=== PATIENT | female | born 1985 | race Caucasian/White ===

== ENCOUNTER → 2021-12-03 08:39 | Outpatient (CLI) | payer OTHER, SELFPAY ==
--- NOTE | ~2021-12-03 | US_ITS ---
US right upper quadrant INDICATION: Right upper quadrant pain PROCEDURE: Realtime right upper abdominal ultrasound. COMPARISON: No prior studies for comparison. FINDINGS: The pancreas is normal without focal mass or pancreatic ductal dilation. Liver echotexture is normal without focal mass or intrahepatic biliary dilatation. There is normal directional flow i n the portal vein. The gallbladder is normal without stones, gallbladder wall thickening or pericholecystic fluid. Comm on bile duct measures 4 mm. No sonographic Garces's sign. IMPRESSION: 1: Normal limited abdominal ultrasound. Reviewed, dictated and finalized at location A.
== END ==
PROVIDERS: PCP Internal Medicine; Visit Provider Internal Medicine
DX: R10.11 Right upper quadrant pain (principal)
CPT/HCPCS: 76705

== ENCOUNTER 2024-02-15 10:26 | Outpatient (CLI) | payer OTHER, SELFPAY ==
--- NOTE | ~2024-02-15 | MR_ITS ---
MR breast BI wo/w con 02/15/2024 12:04 CDT INDICATION: Abnormal mammogram TECHNIQUE: MRI of the breasts perform using standard protocol pre-and post IV contrast with the follo wing sequences: Axial T2 STIR, axial T1, axial vibrant T1 with fat suppression precontrast and multip hasic postcontrast. 12 cc MultiHance administered intravenously COMPARISON: No prior studies for comparison. FINDINGS: There are no abnormalities on the precontrast sequences. There is mild background parenchym al enhancement. In the upper inner quadrant of the right breast at 1:00, middle third there is an irr egular shaped mass measuring 12 x 9 x 6 mm which is T1 and T2 hypointense with heterogeneous internal rapid plateau enhancement. No abnormal signal abnormalities of the axillary or internal mammary lymp h nodes. LEFT BREAST: No signal abnormalities on precontrast sequences. There is mild background parenchymal enhancement. No enhancing lesions following contrast administration. No areas of enhancement meeti ng threshold criteria on CAD analysis. No evidence of signal abnormalities in the axillary or inter nal mammary node distributions.] IMPRESSION: 1: Right breast: Abnormal right breast mass in the upper inner quadrant at 1:00, middle third measur ing 12 x 9 x 6 mm with rapid plateau enhancement. 2: Left breast: Negative. No evidence of malignancy. Recommendation: Correlation with diagnostic bilateral mammogram and additional ultrasound recommended . BI-RADS CATEGORY 0 - INCOMPLETE STUDY, NEED ADDITIONAL IMAGING EVALUATION. Reviewed, dictated and finalized at location B. IMPRESSION: 1: Right breast: Abnormal right breast mass in the upper inner quadrant at 1:0 0, middle third measuring 12 x 9 x 6 mm with rapid plateau enhancement. 2: Left breast: Negative. No evidence of malignancy. Recommendation: Correlation with diagnostic bilateral mammogram and additional ultrasound recommended. BI-RADS CATEGORY 0 - INCOMPLETE STUDY, NEED ADDITIONAL IMAGING EVALUATION.
== END 2024-02-15 10:27 | disposition home or self-care (01) ==
LOC: ANHIMG 10:32
PROVIDERS: PCP Internal Medicine; Visit Provider Internal Medicine Hematology & Oncology
DX: R92.8 Other abnormal and inconclusive findings on diagnostic imaging of breast (principal); N63.12 Unspecified lump in the right breast, upper inner quadrant
CPT/HCPCS: 77049; A9577; C8908

== ENCOUNTER 2024-07-04 10:44 | Outpatient (CLI) | payer OTHER, SELFPAY ==
--- NOTE | ~2024-07-04 | MMUS_ITS ---
EXAMINATION: US breast BI limited, MM diagnostic jyoti BI w pippa HISTORY: Abnormal enhancement seen on recent MRI examination in the right breast. TECHNIQUE: Additional 3-D tomosynthesis images of the breasts were performed and synthetic 2-D images were generated. CAD analysis was submitted and interpreted. High resolution bilateral breast ultraso und was performed. COMPARISON: MRI dated 02/15/2024 BREAST PARENCHYMAL COMPOSITION: Dense: The breasts are extremely dense, which lowers the sensitivity of mammography. FINDINGS: MAMMOGRAPHIC FINDINGS: There is architectural distortion in the upper inner quadrant of the right breast, consistent with pr evious biopsy site (benign). Slightly anterior to this location there is an area of palpable concern. ULTRASOUND: Limited right breast ultrasound: At 1:00, 2 cm from the nipple there is an oval hypoechoic 4 mm mass with internal echogenic areas, possibly benign intramammary lymph node. There is parallel orientation , no significant internal vascularity and mixed posterior attenuation. At 9:00, 1 cm from the nipple there is a 3 mm cyst. Limited left breast ultrasound: At 12:00, 5 cm from the nipple there is a 5 mm complicated cysts. At 12:00, 1 cm from the nipple there is a septated cyst measuring 5 mm. At 7:00, 1 cm from the nipple th ere is a 5 mm cyst. IMPRESSION: 1. Probable benign right breast mass at 1:00, 2 cm from the nipple measuring 4 mm. No evidence for ma lignancy in the left breast. Benign findings. 2. Recommend 6 month follow-up Limited right breast ultrasound BI-RADS category 3, probably benign findings. Reviewed, dictated and finalized at location B. [employer] IMPRESSION: 1. Probable benign right breast mass at 1:00, 2 cm from the nipple measuring 4 mm. No evidence for malignancy in the left breast. Benign findings. 2. Recommend 6 month follow-up Limited right breast ultrasound BI-RADS category 3, probably benign findings.
== END 2024-07-04 10:45 | disposition home or self-care (01) ==
LOC: ANHIMG 10:47
PROVIDERS: PCP Internal Medicine; Visit Provider Internal Medicine Hematology & Oncology
DX: R92.8 Other abnormal and inconclusive findings on diagnostic imaging of breast (principal); N63.0 Unspecified lump in unspecified breast
CPT/HCPCS: 76642; 77062; 77066; G0279

== ENCOUNTER 2025-01-16 10:47 | Outpatient (CLI) | payer OTHER, SELFPAY ==
--- NOTE | ~2025-01-16 | US_ITS ---
EXAMINATION TYPE: US breast RT limited COMPARISON: 07/04/2024 REASON FOR STUDY: ABN MAMM RT BREAST TECHNIQUE: Targeted sonographic evaluation of the right breast was performed. INTERPRETATION: At the 1:00 position right breast, 2 cm from the nipple, there is a stable 4 mm parallel, circumscrib ed, hypoechoic mass. IMPRESSION: Stable 4 mm probable benign appearing lesion at the 1:00 position right breast, 2 cm of the nipple. BI-RADS CATEGORY: BI-RADS 3: Probably benign. 6 month follow-up recommended Reviewed, dictated and finalized at location M.
== END 2025-01-16 10:48 | disposition home or self-care (01) ==
PROVIDERS: PCP Internal Medicine; Visit Provider Internal Medicine Hematology & Oncology
DX: R92.8 Other abnormal and inconclusive findings on diagnostic imaging of breast (principal); N63.12 Unspecified lump in the right breast, upper inner quadrant
CPT/HCPCS: 76642